=== PATIENT | male | born 1980 | race Caucasian/White ===

== ENCOUNTER 2021-03-21 08:34 | Emergency (ER) | payer SELFPAY ==
[2021-03-21 08:39] VITALS: TEMP 98.4
--- NOTE | 2021-03-21 09:01 | ED ---
General Adult HPI - General Chief complaint: Recheck/Abnormal Lab/Rx Stated complaint: needs covid test Time Seen by Provider: 03/21/21 08:38 Source: patient, RN notes reviewed Mode of arrival: ambulatory Limitations: no limitations - History of Present Illness Initial comments: 40-year-old male with out any significant past medical history presents to the emergency room for a chief complaint of [place] virus testing. Patient is trying to go to [place] a needle into past the border. Patient otherwise has no symptoms or exposures.Patient has no other complaints at this time including shortness of breath, chest pain, abdominal pain, nausea or vomiting, headache, or visual changes. - Related Data Allergies Allergy/AdvReac Type Severity Reaction Status Date / Time No Known Allergies Allergy Verified 03/21/21 08:39 Review of Systems ROS Statement: Those systems with pertinent positive or pertinent negative responses have been documented in the HPI. ROS Other: All systems not noted in ROS Statement are negative. Past Medical History Past Medical History: No Reported History History of Any Multi-Drug Resistant Organisms: None Reported Past Surgical History: Hernia Repair Past Psychological History: No Psychological Hx Reported Smoking Status: Current every day smoker Past Alcohol Use History: None Reported Past Drug Use History: None Reported General Exam Limitations: no limitations General appearance: alert, in no apparent distress Head exam: Present: atraumatic Eye exam: Present: normal appearance, PERRL, EOMI. Absent: scleral icterus, conjunctival injection ENT exam: Present: normal exam, mucous membranes moist Neck exam: Present: normal inspection, full ROM Respiratory exam: Absent: respiratory distress Neurological exam: Present: alert, normal gait Course Vital Signs 03/21/21 08:37 Temperature 98.4 F Pulse Rate 93 Respiratory 18 Rate Blood Pressure 160/96 O2 Sat by Pulse 97 Oximetry Medical Decision Making - Medical Decision Making Lab test is negative, patient can be discharged home in stable condition. - Lab Data Lab Results 03/21/21 Range/Units 08:55 Coronavirus (PCR) Not Detected (Not Detectd) Disposition Clinical Impression: Lab test negative for COVID-19 virus Disposition: HOME SELF-CARE Condition: Good Instructions (If sedation given, give patient instructions): Coronavirus Disease 2019 (COVID-19) Additional Instructions: Please follow up with your doctor in 1-2 days. Is patient prescribed a controlled substance at d/c from ED?: No Referrals: Dee Leung MD [REFERRING] - 1-2 days Time of Disposition: 09:48
[2021-03-21 09:51] VITALS: BP 145/78; PULSE 74; RESP 20
== END 2021-03-21 09:51 | disposition home or self-care (01) ==
LOC: EC 08:34
DX: Z20.822 Contact with and (suspected) exposure to COVID-19 (principal); F17.200 Nicotine dependence, unspecified, uncomplicated
CPT/HCPCS: 87635; 99282